=== PATIENT | male | born 1960 | race Caucasian/White ===

== ENCOUNTER 2020-01-17 08:03 | Emergency (ER) | payer BC ==
--- NOTE | 2020-01-17 09:38 | UC ---
General HPI - HPI Summary HPI Summary: PATIENT PRESENTS COMPLAINING OF 2 WEEKS OF HEADACHE AND ANTERIOR CHEST PRESSURE. STATES THAT HE HAD FLULIKE SYMPTOMS INITIALLY BUT THOSE HAVE SINCE TOTALLY RESOLVED. HE DENIES ANY RESIDUAL COUGH, SINUS/NASAL CONGESTION, FEVER, BODY ACHES. NO SORE THROAT OR EAR PAIN. STATES THAT THE HEADACHE IS FEELING BETTER AND BETTER EVERY DAY AND THAT SYMPTOMS ARE ALLEVIATED WITH IBUPROFEN BUT HE WAS CONCERNED BECAUSE OF HOW LONG IT HAS PERSISTED. HE STATES THE CHEST PRESSURE IS NOT ASSOCIATED WITH ANY OTHER SYMPTOMS. AGAIN NO NAUSEA, SHORTNESS OF BREATH OR SWEATS. STATES THAT HE WAKES UP IN THE MORNING WITH IT BUT THAT BY THE END OF THE DAY IT IS MUCH IMPROVED. - History of Current Complaint Chief Complaint: UCHeadache Stated Complaint: HEADACHE CONGESTION Time Seen by Provider: 01/17/20 08:47 Hx Obtained From: Patient Onset/Duration: Gradual Onset, Lasting Weeks, Still Present Timing: Constant Onset Severity: Moderate Current Severity: Moderate Pain Intensity: 4 Associated Signs & Symptoms: Positive: Headache. Negative: Cough, Fever, Nausea , SOB, Weakness - Allergy/Home Medications Allergies/Adverse Reactions: Allergies Allergy/AdvReac Type Severity Reaction Status Date / Time No Known Allergies Allergy Verified 01/17/20 08:12 Home Medications: Home Medications NK [No Home Medications Reported] 01/17/20 [History Confirmed 01/17/20] PMH/Surg Hx/FS Hx/Imm Hx Previously Healthy: Yes - Surgical History Surgical History: None - Family History Known Family History: Negative: Cardiac Disease, Hypertension, Diabetes - Social History Alcohol Use: Daily Alcohol Amount: 1-2 beer/ day Substance Use Type: None Smoking Status (MU): Never Smoked Tobacco Review of Systems All Other Systems Reviewed And Are Negative: Yes Constitutional: Positive: Negative ENT: Positive: Negative Respiratory: Positive: Negative Cardiovascular: Positive: Other - CHEST PRESSURE Gastrointestinal: Positive: Negative Musculoskeletal: Positive: Negative Neurological/Mental Status: Positive: Headache Physical Exam Triage Information Reviewed: Yes Appearance: Well-Appearing, No Pain Distress, Well-Nourished Vital Signs: Initial Vital Signs Temp 97.6 F 01/17/20 08:12 Pulse 55 01/17/20 08:12 Resp 16 01/17/20 08:12 BP 127/80 01/17/20 08:12 Pulse Ox 100 01/17/20 08:12 Vital Signs Reviewed: Yes Eyes: Positive: Conjunctiva Clear ENT: Positive: Hearing grossly normal, Pharynx normal, TMs normal - BILATERAL EACs WITH IMPACTED CERUMEN. AFTER IRRIGATION BY RN TMs SEEN TO BE NORMAL Neck: Positive: Supple, Nontender, No Lymphadenopathy Respiratory Exam: Normal Cardiovascular Exam: Normal Abdomen Description: Positive: Soft Musculoskeletal: Positive: No Edema Neurological: Positive: Alert Psychological: Positive: Age Appropriate Behavior Skin: Negative: Rashes Course/Dx - Course Course Of Treatment: PATIENT PRESENTS WITH PERSISTENT HEADACHE AND CHEST PRESSURE AFTER FLULIKE ILLNESS 2 WEEKS AGO. PATIENT HAS NO NEUROLOGIC SYMPTOMS. STATES THE HEADACHE IS IMPROVING EVERY DAY. OFFERED CT SCAN TODAY HOWEVER PATIENT DECLINES WHICH I THINK IS REASONABLE. HIS HEADACHE IS IMPROVING. ADVISED TO GO TO THE ER WITHOUT FAIL IF HIS HEADACHE WORSENS OR IF HE DEVELOPS ANY FOCAL NEUROLOGIC SYMPTOMS. FOR HIS CHEST PRESSURE PATIENT STATES HE IS SURE IT IS NOT CARDIAC. I DISCUSSED WITH THE PATIENT THAT WE ARE UNABLE TO DEFINITIVELY RULE OUT ANY UNDERLYING CARDIAC CONDITION HERE IN THE URGENT CARE AND THAT EVALUATION IN THE URGENT CARE WOULD BE WARRANTED. HE DECLINES TRANSFER. ADVISED THAT HE COULD BE RISKING WORSENING OF HIS CONDITION THAT COULD POSE A THREAT TO HIS LIFE, HEALTH AND MEDICAL SAFETY. HE VERBALIZES UNDERSTANDING AND CONTINUES TO DECLINE TRANSFER. STATES HE WILL GO IF HIS SX PERSIST. BILATERAL EAR CANALS SUCCESSFULLY IRRIGATED BY RN. - Diagnoses Provider Diagnosis: Headache, Impacted cerumen, bilateral, Sensation of chest pressure Discharge ED - Sign-Out/Discharge Documenting (check all that apply): Patient Departure All imaging exams completed and their final reports reviewed: No Studies - Discharge Plan Condition: Stable Disposition: HOME Patient Education Materials: Cerumen Impaction (ED), General Headache (ED) Referrals: No Primary Care Phys,NOPCP [Primary Care Provider] - Additional Instructions: YOUR HEADACHE SEEMS TO BE IMPROVING EVERY DAY. CONTINUE IBUPROFEN NEEDED FOR SYMPTOM RELIEF. STAY WELL-HYDRATED. IT MAY BE RESIDUAL FROM YOUR RECENT FLULIKE ILLNESS. YOU HAVE DECLINED CT SCAN TODAY WHICH I THINK IS REASONABLE. GO DIRECTLY TO THE ER WITHOUT FAIL IF YOUR SYMPTOMS DO NOT CONTINUE TO IMPROVE OR IF YOU DEVELOP UNEQUAL PUPILS, VISUAL DISTURBANCE, GAIT INSTABILITY, SPEECH DIFFICULTY, NAUSEA/VOMITING, WORSENING HEADACHE, DIZZINESS, CONFUSION, WEAKNESS OR ANY OTHER CONCERNING SYMPTOMS. UNCLEAR ETIOLOGY OF YOUR CHEST PRESSURE. GIVEN YOUR AGE AND THE FACT THAT YOU ARE MALE FURTHER EVALUATION IN THE EMERGENCY ROOM IS CERTAINLY REASONABLE. YOU HAVE DECLINED TRANSFER TO THE ER TODAY WITH THE UNDERSTANDING THAT YOUR CONDITION MAY WORSEN LEADING TO RESPIRATORY DISTRESS/FAILURE, CARDIAC ARREST, /DISABILITY. GO TO THE ER WITHOUT FAIL IF THE CHEST PRESSURE PERSISTS OR WORSENS. NOW THAT YOUR EAR CANALS ARE CLEAR OF WAX YOU MAY USE A QTIP TO GENTLY AND CAREFULLY CLEAN YOUR EARS ONCE OR TWICE A WEEK TO KEEP WAX FROM BUILDING UP. DO NOT INSERT THE QTIP ANY FURTHER THAN THE DEPTH OF THE [facility]. FOLLOW-UP WITH YOUR PCP IN [facility] Disposition and Condition Condition: STABLE Disposition: Home
== END 2020-01-17 10:09 | disposition home or self-care (01) ==
LOC: UCEAST 08:03
DX: R51 Headache (principal); H61.23 Impacted cerumen, bilateral; R07.89 Other chest pain
CPT/HCPCS: 99203; G0463